=== PATIENT | male | born 1980 | race Caucasian/White ===

== ENCOUNTER 2019-01-30 01:28 | Emergency (ER) | payer MEDICAID ==
[2019-01-30] MEDS ORDERED: Ativan 2 MG/1 ML VIAL IV ONE (01:57)
[2019-01-30] MEDS ORDERED: Ativan 2 MG/1 ML VIAL ONE (02:04)
[2019-01-30 02:14] LABS: Absolute Neutrophil Ct (ANC) 4.13 (1.4-6.9); BASOPHIL % 0.3 % (0.0-0.4); Basophil (Absolute #) 0.02 (0-0.4); Eosinophil % 0.7 % (0.00-5.0); Eosinophil (Absolute #) 0.04 (0-0.5); Hematocrit 43.6 % (42-50); Hemoglobin 14.7 gm/dl (12.5-18.0); Lymphocytes % 21.4 % (24.0-44.0); Mean Cell Volume 97.1 fl (78-100); Mean Corpuscular Hemoglobin 32.7 pg (26-32); Mean Corpuscular Hgb Concent. 33.7 g/dl (32-36); Mean Platelet Volume 10.8 fl (6-9.5); Monocyte (Absolute #) 0.58 (0.0-1.3); Monocytes % 9.6 % (0.0-12.0); Platelet Count 159 K/mm3 (150-450); Red Blood Count 4.49 M/mm3 (4.1-5.6); Red Cell Distribution Width 13.1 % (11.5-14.0); White Blood Count 6.1 K/mm3 (4.0-10.5)
[2019-01-30 02:20] LABS: Appearance CLEAR (CLEAR); Bilirubin NEGATIVE (NEGATIVE); Blood NEGATIVE Ery/ul (0-5); Glucose NEGATIVE (NEGATIVE); Ketones NEGATIVE (NEGATIVE); Leukocyte Esterase NEGATIVE (NEGATIVE); Mucus SLIGHT /HPF (NEGATIVE); Nitrite NEGATIVE (NEGATIVE); Protein,Urine Dip NEGATIVE (Negative); Specific Gravity 1.003 (1.005-1.025); Urobilinogen NEGATIVE mg/dL (0-1); WBC 0-2 /HPF (0-5)
[2019-01-30 02:26] LABS: ALBUMIN 4.5 g/dL (3.5-5.0); ALKALINE PHOSPHATASE 68 U/L (38-126); BLOOD UREA NITROGEN 7 mg/dL (9-20); CHLORIDE 104 mmol/L (98-107); Calcium 9.4 mg/dL (8.4-10.2); Carbon Dioxide 25 mmol/L (22-30); Creatinine 1 0.91 mg/dL (0.66-1.25); Glucose 107 mg/dL (74-106); Potassium 3.5 mmol/L (3.5-5.1); SGOT/AST 36 U/L (17-59); SGPT/ALT 42 U/L (0-50); SODIUM 138 mmol/L (137-145); Total Protein 8.1 g/dL (6.3-8.2)
[2019-01-30 02:33] LABS: Barbiturate,Urine NEGATIVE (NEGATIVE); Benzodiazepine,Urine NEGATIVE (NEGATIVE); Cocaine,Urine NEGATIVE (NEGATIVE); Methadone,Urine NEGATIVE (NEGATIVE); Opiate,Urine NEGATIVE (NEGATIVE); PCP,Urine NEGATIVE (NEGATIVE); THC,Urine NEGATIVE (NEGATIVE)
[2019-01-30 02:54] VITALS: BP 115/80; PULSE 96; O2SAT 98
[2019-01-30 02:59] LABS: Amphetamine,Urine POSITIVE (NEGATIVE)
--- NOTE | 2019-01-30 03:55 | ERPHSYRPT ---
- History of Present Illness Source: patient, family, EMS Exam Limitations: other (meth abuse) Patient Subjective Stated Complaint: pt states that he snorted meth, pt states that this is the first time he has had meth [facility], pt states that he feels short of breath and feels different, pt states that he has never felt this way before, pt states that he snorted a 1/4 gram of meth Triage Nursing Assessment: pt came into the er via ambulance, pt axo x3, pt is anxious and neverous, pt is tachycardic, pt has excessive mouth/ tongue movement , pt states that he is thirsty, Timing/Duration: today Severity: moderate Associated Symptoms: shortness of breath, other (rapid heart rate) Allergies/Adverse Reactions: No Known Drug Allergies Allergy (Verified 01/30/19 01:47) Hx Tetanus, Diphtheria Vaccination/Date Given: No (unknown) Hx Influenza Vaccination/Date Given: No Hx Pneumococcal Vaccination/Date Given: No - Review of Systems Constitutional: No Symptoms Eyes: No Symptoms Ears, Nose, & Throat: No Symptoms Respiratory: Other (rapid breathing) Cardiac: Palpitations Abdominal/Gastrointestinal: No Symptoms Genitourinary Symptoms: No Symptoms Musculoskeletal: No Symptoms Skin: No Symptoms Neurological: No Symptoms Psychological: Drug Abuse (meth abuse, ongoing) Endocrine: No Symptoms Hematologic/Lymphatic: No Symptoms Immunological/Allergic: No Symptoms All Other Systems: Reviewed and Negative - Past Medical History Pertinent Past Medical History: No Neurological History: No Pertinent History ENT History: No Pertinent History Cardiac History: No Pertinent History Respiratory History: No Pertinent History Endocrine Medical History: No Pertinent History Musculoskeletal History: No Pertinent History GI Medical History: No Pertinent History History: No Pertinent History Psycho-Social History: No Pertinent History Male Reproductive Disorders: No Pertinent History Other Medical History: meth abuse - chronic - Past Surgical History Past Surgical History: No Neuro Surgical History: No Pertinent History Cardiac: No Pertinent History Respiratory: No Pertinent History Gastrointestinal: No Pertinent History Genitourinary: No Pertinent History Musculoskeletal: No Pertinent History Male Surgical History: No Pertinent History - Social History Smoking Status: Current every day smoker How long have you smoked: 10 YEARS Exposure to second hand smoke: Yes Drug Use: methamphetamines Patient Lives Alone: No Significant Family History: no pertinent family hx - Nursing Vital Signs Nursing Vital Signs: Initial Vital Signs Temperature 99.2 F 01/30/19 01:30 Pulse Rate 125 H 01/30/19 01:30 Respiratory Rate 24 01/30/19 01:30 Blood Pressure 136/82 01/30/19 01:30 O2 Sat by Pulse Oximetry 100 01/30/19 01:30 Pain Scale Pain Intensity 0 - Physical Exam General Appearance: moderate distress, alert, anxiety Eye Exam: PERRL/EOMI, eyes nml inspection Ears, Nose, Throat Exam: normal ENT inspection, TMs normal, moist mucous membranes Neck Exam: normal inspection, non-tender, supple Respiratory Exam: normal breath sounds Cardiovascular Exam: normal heart sounds, normal peripheral pulses, tachycardia , capillary refill <2 sec Gastrointestinal/Abdomen Exam: soft, normal bowel sounds Rectal Exam: deferred Back Exam: normal inspection Extremity Exam: normal inspection, normal range of motion Neurologic Exam: alert, oriented x 3, cooperative, agitation Skin Exam: normal color Lymphatic Exam: No adenopathy SpO2 Interpretation: normal SpO2: 98 O2 Delivery: Room Air - Course Nursing assessment & vital signs reviewed: Yes EKG Interpreted by Me: Sinus Tach (113), NORMAL AXIS, NORMAL INTERVALS, NORMAL QRS, NORMAL ST-T Rhythm Strip: Rate (110) Ordered Tests: Active Orders 24 hr Category Date Time Status Clean Catch Urine Specimen STAT Care 01/30/19 02:00 Active EKG-ER Only STAT Care 01/30/19 01:58 Active CBC W DIFF Stat Lab 01/30/19 02:12 Completed CMP Stat Lab 01/30/19 02:12 Completed TROPONIN Q3H Lab 01/30/19 02:12 Completed UA W/RFX UR CULTURE Stat Lab 01/30/19 02:13 Completed Urine Triage Profile Stat Lab 01/30/19 02:13 Completed Medication Summary Discontinued Medications Generic Name Dose Route Start Last Admin Trade Name Freq PRN Reason Stop Dose Admin Lorazepam 2 mg 01/30/19 01:57 01/30/19 02:06 Ativan 2 Mg/1 Ml Vial IV 01/30/19 01:58 2 mg STAT ONE Administration Lorazepam Confirm 01/30/19 02:04 Ativan 2 Mg/1 Ml Vial Administered 01/30/19 02:05 Dose 2 mg .ROUTE .STK-MED ONE Lab/Rad Data: Laboratory Result Diagrams 01/30/19 02:12 01/30/19 02:12 Laboratory Results 01/30/19 01/30/19 01/30/19 Range/Units 02:13 02:13 02:12 WBC (4.0-10.5) K/mm3 RBC (4.1-5.6) M/mm3 Hgb (12.5-18.0) gm/dl Hct (42-50) % MCV (78-100) fl MCH (26-32) pg MCHC (32-36) g/dl RDW (11.5-14.0) % Plt Count (150-450) K/mm3 MPV (6-9.5) fl Gran % (36.0-66.0) % Eos # (Auto) (0-0.5) Absolute Lymphs (auto) (1.0-4.6) Absolute Monos (auto) (0.0-1.3) Lymphocytes % (24.0-44.0) % Monocytes % (0.0-12.0) % Eosinophils % (0.00-5.0) % Basophils % (0.0-0.4) % Absolute Granulocytes (1.4-6.9) Basophils # (0-0.4) Sodium (137-145) mmol/L Potassium (3.5-5.1) mmol/L Chloride (98-107) mmol/L Carbon Dioxide (22-30) mmol/L Anion Gap (5-15) MEQ/L BUN (9-20) mg/dL Creatinine (0.66-1.25) mg/dL Estimated GFR ML/MIN Glucose (74-106) mg/dL Calcium (8.4-10.2) mg/dL Total Bilirubin (0.2-1.3) mg/dL AST (17-59) U/L ALT (0-50) U/L Alkaline Phosphatase (38-126) U/L Troponin I < 0.012 (0.000-0.034) ng/mL Serum Total Protein (6.3-8.2) g/dL Albumin (3.5-5.0) g/dL Urine Color STRAW (YELLOW) Urine Appearance CLEAR (CLEAR) Urine pH 6.0 (5-6) Ur Specific [place] 1.003 (1.005-1.025) Urine Protein NEGATIVE (Negative) Urine Ketones NEGATIVE (NEGATIVE) Urine Blood NEGATIVE (0-5) Davion/ul Urine Nitrite NEGATIVE (NEGATIVE) Urine Bilirubin NEGATIVE (NEGATIVE) Urine Urobilinogen NEGATIVE (0-1) mg/dL Ur Leukocyte Esterase NEGATIVE (NEGATIVE) Urine WBC (Auto) 0-2 (0-5) /HPF Urine RBC (Auto) 3-5 (0-2) /HPF U Epithel Cells (Auto) NONE (FEW) /HPF Urine Bacteria (Auto) NONE (NEGATIVE) /HPF Urine Mucus (Auto) SLIGHT (NEGATIVE) /HPF Urine Culture Reflexed NO (NO) Urine Glucose NEGATIVE (NEGATIVE) mg/dL Urine Opiates Level NEGATIVE (NEGATIVE) Ur Methadone NEGATIVE (NEGATIVE) Urine Barbiturates NEGATIVE (NEGATIVE) Ur Phencyclidine (PCP) NEGATIVE (NEGATIVE) Urine Amphetamine POSITIVE (NEGATIVE) U Benzodiazepine Level NEGATIVE (NEGATIVE) Urine Cocaine NEGATIVE (NEGATIVE) Urine Marijuana (THC) NEGATIVE (NEGATIVE) 01/30/19 01/30/19 Range/Units 02:12 02:12 WBC 6.1 (4.0-10.5) K/mm3 RBC 4.49 (4.1-5.6) M/mm3 Hgb 14.7 (12.5-18.0) gm/dl Hct 43.6 (42-50) % MCV 97.1 (78-100) fl MCH 32.7 H (26-32) pg MCHC 33.7 (32-36) g/dl RDW 13.1 (11.5-14.0) % Plt Count 159 (150-450) K/mm3 MPV 10.8 H (6-9.5) fl Gran % 68.0 H (36.0-66.0) % Eos # (Auto) 0.04 (0-0.5) Absolute Lymphs (auto) 1.30 (1.0-4.6) Absolute Monos (auto) 0.58 (0.0-1.3) Lymphocytes % 21.4 L (24.0-44.0) % Monocytes % 9.6 (0.0-12.0) % Eosinophils % 0.7 (0.00-5.0) % Basophils % 0.3 (0.0-0.4) % Absolute Granulocytes 4.13 (1.4-6.9) Basophils # 0.02 (0-0.4) Sodium 138 (137-145) mmol/L Potassium 3.5 (3.5-5.1) mmol/L Chloride 104 (98-107) mmol/L Carbon Dioxide 25 (22-30) mmol/L Anion Gap 12.0 (5-15) MEQ/L BUN 7 L (9-20) mg/dL Creatinine 0.91 (0.66-1.25) mg/dL Estimated GFR > 60.0 ML/MIN Glucose 107 H (74-106) mg/dL Calcium 9.4 (8.4-10.2) mg/dL Total Bilirubin 0.80 (0.2-1.3) mg/dL AST 36 (17-59) U/L ALT 42 (0-50) U/L Alkaline Phosphatase 68 (38-126) U/L Troponin I (0.000-0.034) ng/mL Serum Total Protein 8.1 (6.3-8.2) g/dL Albumin 4.5 (3.5-5.0) g/dL Urine Color (YELLOW) Urine Appearance (CLEAR) Urine pH (5-6) Ur Specific [place] (1.005-1.025) Urine Protein (Negative) Urine Ketones (NEGATIVE) Urine Blood (0-5) Davion/ul Urine Nitrite (NEGATIVE) Urine Bilirubin (NEGATIVE) Urine Urobilinogen (0-1) mg/dL Ur Leukocyte Esterase (NEGATIVE) Urine WBC (Auto) (0-5) /HPF Urine RBC (Auto) (0-2) /HPF U Epithel Cells (Auto) (FEW) /HPF Urine Bacteria (Auto) (NEGATIVE) /HPF Urine Mucus (Auto) (NEGATIVE) /HPF Urine Culture Reflexed (NO) Urine Glucose (NEGATIVE) mg/dL Urine Opiates Level (NEGATIVE) Ur Methadone (NEGATIVE) Urine Barbiturates (NEGATIVE) Ur Phencyclidine (PCP) (NEGATIVE) Urine Amphetamine (NEGATIVE) U Benzodiazepine Level (NEGATIVE) Urine Cocaine (NEGATIVE) Urine Marijuana (THC) (NEGATIVE) - Progress Progress: improved Progress Note: 01/30/19 03:55 Calmed down with ativan. Basic work-up is normal with meth in UDS. D/C home with family. 01/30/19 07:48 Counseled pt/family regarding: drug and/or alcohol abuse, lab results, diagnosis , need for follow-up - Departure Departure Disposition: Home (with family) Clinical Impression: Methamphetamine abuse Condition: Stable Critical Care Time: No Referrals: DOCTOR,NO FAMILY [Primary Care Provider] - Follow Up with PCP/3 days Instructions: Methamphetamine Additional Instructions: Don't do drugs. Suggest look for a treatment program.
== END 2019-01-30 04:07 | disposition home or self-care (01) ==
LOC: ED 01:28
DX: F11.10 Opioid abuse, uncomplicated (principal)
CPT/HCPCS: 36415; 80053; 80307; 81001; 84484; 85025; 93005; 96374; 99284; J2060

== ENCOUNTER 2019-10-11 19:38 | Emergency (ER) | payer MEDICAID, OTHER ==
[2019-10-11] MEDS ORDERED: TORAdol 30 mg Injection IV ONE (20:08)
[2019-10-11] MEDS ORDERED: Sodium Chloride 0.9% 1000 ML 1,000 ML IV STA (20:08)
[2019-10-11] MEDS ORDERED: TORAdol 30 mg Injection ONE (20:14)
[2019-10-11] MEDS ORDERED: Sodium Chloride 0.9% 1000 ML 1,000 ML ONE (20:14)
[2019-10-11 20:35] LABS: Absolute Neutrophil Ct (ANC) 3.68 (1.4-6.9); BASOPHIL % 0.3 % (0.0-0.4); Basophil (Absolute #) 0.02 (0-0.4); Eosinophil % 4.5 % (0.00-5.0); Eosinophil (Absolute #) 0.26 (0-0.5); Hemoglobin 14.9 gm/dl (12.5-18.0); Lymphocyte (Absolute #) 1.35 (1.0-4.6); Lymphocytes % 23.2 % (24.0-44.0); Mean Cell Volume 99.8 fl (78-100); Mean Corpuscular Hemoglobin 32.3 pg (26-32); Mean Corpuscular Hgb Concent. 32.4 g/dl (32-36); Mean Platelet Volume 11.2 fl (7.5-11.0); Monocyte (Absolute #) 0.51 (0.0-1.3); Monocytes % 8.8 % (0.0-12.0); Neutrophil % 63.2 % (36.0-66.0); Platelet Count 173 K/mm3 (150-450); Red Blood Count 4.61 M/mm3 (4.1-5.6); Red Cell Distribution Width 13.2 % (11.5-14.0); White Blood Count 5.8 K/mm3 (4.0-10.5)
[2019-10-11 20:43] LABS: ALBUMIN 4.1 g/dL (3.5-5.0); ALKALINE PHOSPHATASE 79 U/L (38-126); ANION GAP 9.5 MEQ/L (5-15); BLOOD UREA NITROGEN 11 mg/dL (9-20); CHLORIDE 100 mmol/L (98-107); Calcium 9.7 mg/dL (8.4-10.2); Carbon Dioxide 32 mmol/L (22-30); EST GLOMERULAR FILTRATION RATE > 60.0 ML/MIN; Glucose 105 mg/dL (74-106); Potassium 4.4 mmol/L (3.5-5.1); SGOT/AST 35 U/L (17-59); SGPT/ALT 44 U/L (0-50); SODIUM 138 mmol/L (137-145); Total Protein 7.4 g/dL (6.3-8.2)
[2019-10-11 20:45] LABS: Appearance CLEAR (CLEAR); Bilirubin NEGATIVE (NEGATIVE); Blood SMALL Ery/ul (0-5); Glucose NEGATIVE (NEGATIVE); Ketones NEGATIVE (NEGATIVE); Leukocyte Esterase SMALL (NEGATIVE); Mucus SLIGHT /HPF (NEGATIVE); Nitrite NEGATIVE (NEGATIVE); Protein,Urine Dip NEGATIVE (Negative); Specific Gravity 1.017 (1.005-1.025); Urobilinogen 2 mg/dL (0-1); WBC 0-2 /HPF (0-5)
--- NOTE | 2019-10-11 21:19 | ERPHSYRPT ---
- History of Present Illness Time Seen by Provider: 10/11/19 20:00 Source: patient Exam Limitations: no limitations Patient Subjective Stated Complaint: pt states that he went to [facility] on 10/07/19, pt states that he was diagnosed with kidney stones in left kidney, pt states that hospital gave him norco and ibuprofen, pt states that he took a norco and 1 ibuprofen 30 minutes prior to coming in, pt states that he still has not passed the stone Triage Nursing Assessment: pt ambulated into the er, pt is axo x3, c/o left flank pain, states 3/10 pain, clear lung sounds in all lobes, clear heart tones, abdomen soft, active bowel sounds in all quads, tenderness to left flank with palpations, vitals wnl Physician History: Patient is a 39-year-old male with a history of kidney stone diagnosed approximately 5 days ago presents to our ED with flank pain. Patient's pain is the same as it was when he was diagnosed with a kidney stone. Patient was discharged with ibuprofen and [place]. No Flomax was prescribed. Patient was advised to follow-up with his primary care doctor. Patient has not seen or been referred to urologist. Pain described as an ache that is intermittent. 1 present pain is 8 out of 10. Pain is currently 3 out of 10. No trauma. No fever. No nausea vomiting. No dysuria or hematuria. Symptoms are mild to moderate intensity. No specific worsening or improving factors. Patient otherwise healthy. He voices no other complaints or concerns at this time. Timing/Duration: day(s) (Days ago.) Severity: moderate Modifying Factors: Improves With: nothing Associated Symptoms: No nausea, No vomiting, No abdominal pain, No heartburn, No diaphoresis, No cough, No chills, No chest pain, No fever, No syncope, No seizure Allergies/Adverse Reactions: No Known Drug Allergies Allergy (Verified 10/11/19 19:58) Home Medications: Hydrocodone/Acetaminophen [Hydrocodone-Acetamin 7.5-325] 1 each PO Q6H PRN PRN 10/11/19 [History] Ibuprofen 600 mg PO Q8H PRN PRN 10/11/19 [History] Hx Tetanus, Diphtheria Vaccination/Date Given: Yes Hx Influenza Vaccination/Date Given: Yes Hx Pneumococcal Vaccination/Date Given: No Travel Risk - International Travel Have you traveled outside of the country in past 3 weeks: No - Coronavirus Screening Are you exhibiting any of the following symptoms?: No Close contact with a COVID-19 positive Pt in past 14-21 Days: No - Review of Systems Constitutional: No Symptoms, No Fever, No Chills Eyes: No Symptoms Ears, Nose, & Throat: No Symptoms Respiratory: No Symptoms, No Cough, No Dyspnea Cardiac: No Symptoms, No Chest Pain, No Edema, No Syncope Abdominal/Gastrointestinal: No Symptoms, No Abdominal Pain, No Nausea, No Vomiti ng, No Diarrhea Genitourinary Symptoms: No Symptoms, No Dysuria Musculoskeletal: No Back Pain, No Neck Pain Skin: No Symptoms, No Rash Neurological: No Symptoms, No Dizziness, No Focal Weakness, No Sensory Changes Psychological: No Symptoms Endocrine: No Symptoms Hematologic/Lymphatic: No Symptoms Immunological/Allergic: No Symptoms All Other Systems: Reviewed and Negative - Past Medical History Pertinent Past Medical History: No Neurological History: No Pertinent History ENT History: No Pertinent History Cardiac History: No Pertinent History Respiratory History: No Pertinent History Endocrine Medical History: No Pertinent History Musculoskeletal History: No Pertinent History GI Medical History: No Pertinent History History: No Pertinent History Psycho-Social History: No Pertinent History Male Reproductive Disorders: No Pertinent History Other Medical History: meth abuse - chronic - Past Surgical History Past Surgical History: No Neuro Surgical History: No Pertinent History Cardiac: No Pertinent History Respiratory: No Pertinent History Gastrointestinal: No Pertinent History Genitourinary: No Pertinent History Musculoskeletal: No Pertinent History Male Surgical History: No Pertinent History - Social History Smoking Status: Current every day smoker How long have you smoked: 10 YEARS Exposure to second hand smoke: Yes Drug Use: methamphetamines Patient Lives Alone: No Significant Family History: no pertinent family hx - Nursing Vital Signs Nursing Vital Signs: Initial Vital Signs Temperature 98.3 F 10/11/19 19:58 Pulse Rate 88 10/11/19 19:58 Respiratory Rate 16 10/11/19 19:58 Blood Pressure 144/92 10/11/19 19:58 O2 Sat by Pulse Oximetry 97 10/11/19 19:58 Pain Scale Pain Intensity 2 - Physical Exam General Appearance: no apparent distress, alert Eye Exam: PERRL/EOMI, eyes nml inspection Ears, Nose, Throat Exam: normal ENT inspection, TMs normal, pharynx normal, moist mucous membranes Neck Exam: normal inspection, non-tender, supple, full range of motion Respiratory Exam: normal breath sounds, lungs clear, No respiratory distress Cardiovascular Exam: regular rate/rhythm, normal heart sounds, normal peripheral pulses Gastrointestinal/Abdomen Exam: soft, normal bowel sounds, other (CVA tenderness.), No tenderness, No mass Back Exam: normal inspection, normal range of motion, No CVA tenderness, No vertebral tenderness Extremity Exam: normal inspection, normal range of motion, pelvis stable Neurologic Exam: alert, oriented x 3, cooperative, normal mood/affect, nml cerebellar function, nml station & gait, sensation nml, No motor deficits Skin Exam: normal color, warm, dry, No rash Lymphatic Exam: No adenopathy SpO2: 97 O2 Delivery: Room Air - Course Nursing assessment & vital signs reviewed: Yes - CT Exams Abdomen/Pelvis CT Interpretation: Tele-radiologist Report (CT reveals a 2 to 3 mm distal left ureteral calculus with minimal hydroureter and mild hydronephrosis. Moderate diffuse fecal stasis. 13.4 cm splenomegaly.) Ordered Tests: Active Orders 24 hr Category Date Time Status IV Insertion STAT Care 10/11/19 20:08 Active ABDOMEN AND PELVIS W/0 CONTRAS [CT] Stat Exams 10/11/19 20:23 Taken CBC W DIFF Stat Lab 10/11/19 20:29 Completed CMP Stat Lab 10/11/19 20:29 Completed UA W/RFX UR CULTURE Stat Lab 10/11/19 20:35 Completed Medication Summary Discontinued Medications Generic Name Dose Route Start Last Admin Trade Name Freq PRN Reason Stop Dose Admin Sodium Chloride 1,000 mls @ 999 mls/hr 10/11/19 20:08 10/11/19 21:23 Sodium Chloride 0.9% 1000 Ml IV 10/11/19 21:08 Infused .Q1H1M STA Infusion Sodium Chloride Confirm 10/11/19 20:14 Sodium Chloride 0.9% 1000 Ml Administered 10/11/19 20:15 Dose 1,000 mls @ ud .ROUTE .STK-MED ONE Ketorolac Tromethamine 30 mg 10/11/19 20:08 10/11/19 20:17 Toradol 30 Mg Injection IV 10/11/19 20:09 30 mg STAT ONE Administration Ketorolac Tromethamine Confirm 10/11/19 20:14 Toradol 30 Mg Injection Administered 10/11/19 20:15 Dose 30 mg .ROUTE .STAdan-MED ONE Lab/Rad Data: Laboratory Result Diagrams 10/11/19 20:29 10/11/19 20:29 Laboratory Results 10/11/19 10/11/19 10/11/19 Range/Units 20:35 20:29 20:29 WBC 5.8 (4.0-10.5) K/mm3 RBC 4.61 (4.1-5.6) M/mm3 Hgb 14.9 (12.5-18.0) gm/dl Hct 46.0 (42-50) % MCV 99.8 (78-100) fl MCH 32.3 H (26-32) pg MCHC 32.4 (32-36) g/dl RDW 13.2 (11.5-14.0) % Plt Count 173 (150-450) K/mm3 MPV 11.2 H (7.5-11.0) fl Gran % 63.2 (36.0-66.0) % Eos # (Auto) 0.26 (0-0.5) Absolute Lymphs (auto) 1.35 (1.0-4.6) Absolute Monos (auto) 0.51 (0.0-1.3) Lymphocytes % 23.2 L (24.0-44.0) % Monocytes % 8.8 (0.0-12.0) % Eosinophils % 4.5 (0.00-5.0) % Basophils % 0.3 (0.0-0.4) % Absolute Granulocytes 3.68 (1.4-6.9) Basophils # 0.02 (0-0.4) Sodium 138 (137-145) mmol/L Potassium 4.4 (3.5-5.1) mmol/L Chloride 100 (98-107) mmol/L Carbon Dioxide 32 H (22-30) mmol/L Anion Gap 9.5 (5-15) MEQ/L BUN 11 (9-20) mg/dL Creatinine 1.20 (0.66-1.25) mg/dL Estimated GFR > 60.0 ML/MIN Glucose 105 (74-106) mg/dL Calcium 9.7 (8.4-10.2) mg/dL Total Bilirubin 0.50 (0.2-1.3) mg/dL AST 35 (17-59) U/L ALT 44 (0-50) U/L Alkaline Phosphatase 79 (38-126) U/L Serum Total Protein 7.4 (6.3-8.2) g/dL Albumin 4.1 (3.5-5.0) g/dL Urine Color YELLOW (YELLOW) Urine Appearance CLEAR (CLEAR) Urine pH 6.0 (5-6) Ur Specific [place] 1.017 (1.005-1.025) Urine Protein NEGATIVE (Negative) Urine Ketones NEGATIVE (NEGATIVE) Urine Blood SMALL (0-5) Davion/ul Urine Nitrite NEGATIVE (NEGATIVE) Urine Bilirubin NEGATIVE (NEGATIVE) Urine Urobilinogen 2 (0-1) mg/dL Ur Leukocyte Esterase SMALL (NEGATIVE) Urine WBC (Auto) 0-2 (0-5) /HPF Urine RBC (Auto) 6-10 (0-2) /HPF U Epithel Cells (Auto) NONE (FEW) /HPF Urine Bacteria (Auto) NONE (NEGATIVE) /HPF Urine Mucus (Auto) SLIGHT (NEGATIVE) /HPF Urine Culture Reflexed NO (NO) Urine Glucose NEGATIVE (NEGATIVE) mg/dL - Progress Progress: improved Progress Note: 10/11/19 21:36 She reassessed. Pain resolved. Work-up shows a left distal ureteral stone. Hydroureter hydro-nephrosis present. Kidney function within normal limits. UA significant for microscopic hematuria. Patient referred to urology. Toradol Flomax provided. Patient agrees to follow-up with his urologist/primary care doctor within 48 hours for reevaluation. Counseled pt/family regarding: lab results, diagnosis, need for follow-up, rad results - Departure Departure Disposition: Home Clinical Impression: Ureterolithiasis, Hydroureter, Hydronephrosis, Constipation, Splenomegaly, Microscopic hematuria Condition: Stable Critical Care Time: No Referrals: DOCTOR,NO FAMILY [Primary Care Provider] - MIR TAYLOR [COURTESY STAFF] - Instructions: Hydronephrosis, Adult (DC) Prescriptions: Tamsulosin HCl 0.4 mg [Flomax 0.4 MG] 0.4 mg PO DAILY 14 Days #14 cap Ketorolac Tromethamine [Toradol] 10 mg PO TID 5 Days #15 tablet
[2019-10-11 21:24] VITALS: BP 132/85; PULSE 94
[2019-10-11 21:32] VITALS: O2SAT 97
--- NOTE | 2019-10-12 09:03 | XRAY ---
Indication: Left flank pain and hematuria. Multiple contiguous axial images obtained through the abdomen and pelvis without contrast using renal stone protocol. Comparison: None Lung bases demonstrates minimal dependent atelectasis. No infiltrate or effusion. Heart is not enlarged. There is a 3 mm distal left ureter calculus approximately 1 cm proximal to the UVJ. Proximal left ureter is minimally prominent and there is mild hydronephrosis consistent with partial obstructive uropathy. No perinephric fluid or free air. Stomach is distended with food/fluid. Normal appendix. Moderate diffuse scattered colonic fecal debris greatest in the right hemicolon. Spleen is enlarged measuring 13.4 cm in greatest axial dimension with multiple calcified granulomas. Remaining liver, gallbladder, pancreas, spleen, adrenal glands, right kidney, right ureter, bladder, and aorta appear unremarkable for noncontrast exam. Osseous structures intact. No ventral or inguinal hernias. Impression: 1. 3 mm distal left ureter calculus producing partial obstruction. 2. Incidental diffuse fecal stasis, splenomegaly, and old granulomatous disease.
== END 2019-10-11 21:38 | disposition home or self-care (01) ==
LOC: ED 19:38
DX: N20.1 Calculus of ureter (principal); N13.30 Unspecified hydronephrosis; K59.00 Constipation, unspecified; K31.9 Disease of stomach and duodenum, unspecified; R16.1 Splenomegaly, not elsewhere classified; R31.29 Other microscopic hematuria
CPT/HCPCS: 36000; 36415; 74176; 80053; 81001; 85025; 96360; 96374; 99284; J1885

== ENCOUNTER 2024-02-01 16:34 | Emergency (ER) | payer OTHER ==
[2024-02-01 17:03] VITALS: RESP 18
[2024-02-01] MEDS ORDERED: XYLOCAINE 1%/Epi 1:100000 MDV 20 ML ONE (17:07)
[2024-02-01] MEDS: XYLOCAINE 1%/Epi 1:100000 MDV 20 ML IJ ONE (17:08)
[2024-02-01 17:42] VITALS: BP 150/73; PULSE 79; O2SAT 97
--- NOTE | 2024-02-01 17:46 | ERPHSYRPT ---
- History of Present Illness Time Seen by Provider: 02/01/24 17:01 Source: patient Exam Limitations: no limitations Patient Subjective Stated Complaint: C/O laceration to right arm at work. States a rock cut it. Triage Nursing Assessment: Patient ambulated back to ER. He is alert and oriented. Coban noted to right post forearm. Dressing removed. No active bleeding at this time. Laceration cleansed with sterile water and hibiclens. Measures 2.2cm X 0.5cm. Physician History: Patient is here with 2.2 x 0.5 cm laceration of the right forearm. Patient states that just prior to arrival he was at the [place] working. States that a rock did fall and hit his arm. This was not a high velocity. Patient has some surrounding abrasions and laceration to the area. States he has no bony tenderness. States that he has no other pain, no pain at his wrist or elbow joint. Otherwise no other injuries. Up-to-date on his tetanus shot. Allergies/Adverse Reactions: No Known Drug Allergies Allergy (Verified 02/01/24 17:00) Home Medications: PANTOPRAZOLE 40 mg Tablet [Protonix 40MG Tablet] 40 mg PO DAILY 02/01/24 [History] Hx Tetanus, Diphtheria Vaccination/Date Given: Yes Hx Influenza Vaccination/Date Given: Yes Hx Pneumococcal Vaccination/Date Given: No Immunizations Up to Date: Yes Travel Risk - International Travel Have you traveled outside of the country in past 3 weeks: No - Emerging Infectious Disease Are you exhibiting symptoms associated with any current EIDs: No - Past Medical History Pertinent Past Medical History: Yes Neurological History: No Pertinent History ENT History: No Pertinent History Cardiac History: No Pertinent History Respiratory History: No Pertinent History Endocrine Medical History: No Pertinent History Musculoskeletal History: No Pertinent History GI Medical History: GERD History: No Pertinent History Psycho-Social History: No Pertinent History Male Reproductive Disorders: No Pertinent History Other Medical History: history of meth abuse - chronic, kidney stone - Past Surgical History Past Surgical History: No Neuro Surgical History: No Pertinent History Cardiac: No Pertinent History Respiratory: No Pertinent History Gastrointestinal: No Pertinent History Genitourinary: No Pertinent History Musculoskeletal: No Pertinent History Male Surgical History: No Pertinent History Significant Family History: no pertinent family hx - Social History Smoking Status: Current every day smoker How long have you smoked: 10 YEARS Exposure to second hand smoke: Yes Drug Use: methamphetamines Patient Lives Alone: No - Social Determinants of Health Will the patient participate in the screening: Declined to provide - Nursing Vital Signs Nursing Vital Signs: Initial Vital Signs Pulse Rate 68 02/01/24 17:00 Respiratory Rate 18 02/01/24 17:00 Blood Pressure 159/87 02/01/24 17:00 O2 Sat by Pulse Oximetry 99 02/01/24 17:00 Pain Scale Pain Intensity 0 - Physical Exam SpO2 Interpretation: normal SpO2: 97 Comments: 02/01/24 17:55 Review of Systems Constitutional: Negative for fever. HENT: Negative for congestion. Respiratory: Negative for shortness of breath. Cardiovascular: Negative for chest pain. Gastrointestinal: Negative for abdominal pain. Genitourinary: Negative for dysuria. Musculoskeletal: Negative for back pain. Skin: Negative for rash. Neurological: Negative for headaches. Psychiatric/Behavioral: Negative for behavioral problems. All other systems reviewed and are negative. Physical Exam Vitals signs and nursing note reviewed. Constitutional: Appearance: Patient is well-developed. HENT: Head: Normocephalic and atraumatic. Eyes: Conjunctiva/sclera: Conjunctivae normal. Neck: Musculoskeletal: Normal range of motion. Trachea: No tracheal deviation. Cardiovascular: Rate and Rhythm: Normal rate. Pulmonary: Effort: Pulmonary effort is normal. No respiratory distress. Abdominal: Palpations: Abdomen is soft. Musculoskeletal: General: Right forearm laceration 2.2 cm x 0.5 cm. Ulnar side. No obvious deformity, sensation intact, 2+ capillary refill, 2 point tactile discrimination intact. 5 out of 5 strength. Full range of motion without pain. Compartments are soft, nontender. Overlying skin shows no tenting, bruising, ecchymosis. Wound explored locally no signs of foreign body or tendon injury. Skin: General: Skin is warm and dry. Neurological/ Psychiatric: Mental Status: Mental status, behavior, interaction with environment is appropriate for patient's age and condition Procedures - Laceration/Wound Repair Arm Time of Procedure: 17:56 Wound Location: Right, lower arm Wound Length (cm): 2.2 Wound's Depth, Shape: irregular Wound Explored: no foreign body noted Irrigated: Yes Hibiclens Prep: Yes Anesthesia: 1% lidocaine w/ Epi Volume Anesthetic (ccs): 8 Wound Debrided: minimal Wound Repaired With: sutures Suture Size/Type: 4-0 Number of Sutures: 4 Layer Closure?: No Sterile Dressing Applied?: Yes Splint Applied?: Yes Sling Applied?: Yes - Course Nursing assessment & vital signs reviewed: Yes Ordered Tests: Medication Summary Discontinued Medications Generic Name Dose Route Start Last Admin Trade Name Fernanda PRN Reason Stop Dose Admin Lidocaine/Epinephrine 5 ml 02/01/24 17:06 02/01/24 17:08 Lidocaine Hcl/Epinephrine 1% 20 Ml IJ 02/01/24 17:07 5 ml STAT ONE Administration Lidocaine/Epinephrine Confirm 02/01/24 17:07 Lidocaine Hcl/Epinephrine 1% 20 Ml Administered 02/01/24 17:08 Dose 1 ml .ROUTE .Fulcrum SP [employer] ONE - Progress Progress: improved Progress Note: 02/01/24 17:57 Right forearm laceration. No foreign body noted on exam. Laceration repaired as above. No bony pain, no pain at wrist or elbow. Therefore did not obtain an x-ray today. Otherwise patiently sutures out in 7 to 10 days. Started today on his tetanus shot. Will discharge patient home on Keflex. I did discuss with patient that he could still have a small retained foreign body based on size of the rocks. Or that we do not see today. This may work itself out eventually. Counseled pt/family regarding: diagnosis, need for follow-up - Departure Departure Disposition: Home Clinical Impression: Laceration of right forearm Condition: Stable Critical Care Time: No Referrals: SAIMA LOWE, [employer] [employer] [Primary Care Provider] - Follow up/PCP as directed Instructions: Laceration Repair With Stitches (DC) Additional Instructions: Suture removal in 7 to 10 days with PCP. Light duty at work Prescriptions: Cephalexin Mh 500 mg [Keflex 500 mg] 500 mg PO BID 10 Days #20 cap
== END 2024-02-01 18:09 | disposition home or self-care (01) ==
LOC: ED 16:34
DX: S51.811A Laceration without foreign body of right forearm, initial encounter (principal); W26.8XXA Contact with other sharp object(s), not elsewhere classified, initial encounter
CPT/HCPCS: 12002; 99283